=== PATIENT | male | born 1960 | race Caucasian/White ===

== ENCOUNTER → 2024-10-20 15:19 | Outpatient (BNVA) | payer BC, MEDICAID, SELFPAY | PROVIDERS: PCP Nurse Practitioner Family; Visit Provider Orthopaedic Surgery | DX: M54.50 Low back pain, unspecified (principal); M54.9 Dorsalgia, unspecified | CPT/HCPCS: 72110 ==

== ENCOUNTER 2024-10-28 15:30 | Outpatient (CLI) | payer MEDICAID, SELFPAY ==
--- NOTE | 2024-10-28 16:00 | MR_ITS ---
WS: [id number] MRI LUMBAR SPINE NONCONTRAST HISTORY: lumbar spine pain, left-sided radiculopathy. COMPARISON: None available. TECHNIQUE: Sagittal and axial multisequence imaging is submitted. Surgical hardware in the cervical spine. Mild straightening and LEFT curvature lumbar spine. Mild disc space narrowing and desiccation. Hypertrophic endplate osteophytes. Marrow edema in the LEFT L5 pedicle and lamina extending into the superior and inferior articular facets. There is increased fluid in the L4-5 LEFT facet joint and additional small amount of marrow edema in the RIGHT L4 LEFT inferior articular facet. Multiple small fluid collections in the LEFT L4-5 paraspinal region. Conus terminates normally at L1-2 disc level. T12-L1: Small central disc protrusion. No stenosis. L1-L2: Mild facet arthritis. No stenosis. L2-L3: Mild annular disc bulging with very minimal osteophytic ridging, ligamentum flavum and facet arthritis. Very mild foraminal narrowing. L3-L4: Diffuse annular disc bulging with moderate osteophytic ridging, ligamentum flavum and facet arthritis. Bilateral foraminal disc osteophyte complexes, RIGHT greater than LEFT. Mild encroachment upon the ventral thecal sac, subarticular recesses and traversing L4 nerve roots. Mild central, bilater al subarticular recess and foraminal stenosis. Slight contact on the RIGHT exiting L3 nerve root. L4-L5: Diffuse annular disc bulging with mild osteophytic ridging, facet and ligamentum flavum hypertrophy. Small central disc protrusion with annular fissure. Significant abnormal osseous and soft tissue process and surrounding the LEFT facet joint in the LEFT paraspinal soft tissues. Abnormal soft tissue extends into the LEFT subarticular recess and proximal foramen. There is marrow edema in the LEFT posterior elements and facet joints with fluid in the LEFT facet joint. There are multiple small fluid collections surrounding the facet joint extending into the paraspinal soft tissues. Abnormal soft tissue and osseous local to this area extends over a length of at least 4.4 cm from the L4 facets towards the L5 facet. Moderate central, bilateral subarticular recess and LEFT foraminal stenosis. L5-S1: Diffuse annular disc bulging intermediate signal into the LEFT subarticular recess contacting the LEFT S1 nerve root. This is in continuity with the paraspinal soft tissue process extending inferiorly from L4. Moderate central, severe LEFT subarticular recess and moderate to severe LEFT foraminal stenosis. Minimal RIGHT foraminal stenosis. Visualized retroperitoneum is negative. Mild fatty replacement of the LEFT psoas muscle. Mild fatty replacement of the LEFT gluteus maximums muscle. Paraspinal soft tissue edema extends over a length of 10.3 cm within the subcutaneous soft tissues on the LEFT beginning at L2-3 disc level and extending inferiorly to S2. Soft tissue is contiguous extending centrally to the L4-5 level. MR/MR lumbar spine wo con* [id number] IMPRESSION: 1. Abnormal soft tissue and osseous process centered at the L4-5 and L5-S1 fac et joints and the surrounding soft tissues. Multiple small fluid collections mi rrounding the LEFT L4 facet joint. Findings may all be due to acute synovitis. Possibility of paraspinal abscess and osteomyelitis should be considered. 2. L4-5: Small central disc protrusion with annular fissure. Moderate central, bilateral subarticular recess and LEFT foraminal stenosis. Increased soft tiss ue extends LEFT subarticular through the foramen. Epidural abscess not excluded . May be disc protrusions and inflammation from synovitis. 3. L5-S1: Abnormal signal LEFT subarticular recess and LEFT foramen contiguous with the acute inflammatory process surrounding the LEFT facet joints at ronald michele soft tissues. Epidural abscess not excluded. Moderate central, severe LEF T subarticular recess and moderate to severe LEFT foraminal stenosis. 4. L3-4: Mild central, bilateral subarticular recess and foraminal stenosis. 5. Mild fatty atrophy of the LEFT psoas and LEFT gluteus tyrese muscles. Recommendation: MRI lumbar spine with gadolinium to exclude osteomyelitis, para spinal abscesses and epidural abscesses at L4-5 and L5-S1.
== END 2024-10-28 15:31 | disposition home or self-care (01) ==
LOC: RAD 15:40
PROVIDERS: PCP Nurse Practitioner Family; Visit Provider Orthopaedic Surgery
DX: M51.369 Other intervertebral disc degeneration, lumbar region without mention of lumbar back pain or lower extremity pain (principal); R93.7 Abnormal findings on diagnostic imaging of other parts of musculoskeletal system; M51.26 Other intervertebral disc displacement, lumbar region; M48.061 Spinal stenosis, lumbar region without neurogenic claudication; M48.07 Spinal stenosis, lumbosacral region; M62.58 Muscle wasting and atrophy, not elsewhere classified, other site; M62.552 Muscle wasting and atrophy, not elsewhere classified, left thigh; Z98.890 Other specified postprocedural states; M51.25 Other intervertebral disc displacement, thoracolumbar region; M47.896 Other spondylosis, lumbar region; M24.28 Disorder of ligament, vertebrae; M51.379 Other intervertebral disc degeneration, lumbosacral region without mention of lumbar back pain or lower extremity pain
CPT/HCPCS: 72148

== ENCOUNTER 2024-12-04 05:00 | Outpatient (RCR) | payer MEDICAID, SELFPAY | END 2025-01-02 23:59 | disposition home or self-care (01) | LOC: MPT 05:00 | PROVIDERS: Visit Provider Orthopaedic Surgery | DX: M54.9 Dorsalgia, unspecified (principal); G89.29 Other chronic pain | CPT/HCPCS: 97110; 97161 ==

== ENCOUNTER 2025-01-03 05:00 | Outpatient (RCR) | payer MEDICAID, SELFPAY | END 2025-02-02 23:59 | disposition home or self-care (01) | LOC: MPT 05:00 | PROVIDERS: PCP Nurse Practitioner Family; Visit Provider Orthopaedic Surgery | DX: M54.9 Dorsalgia, unspecified (principal); G89.29 Other chronic pain | CPT/HCPCS: 97032; 97110; 97530 ==

== ENCOUNTER → 2025-01-03 13:43 | Outpatient (BNVA) | payer BC, MEDICAID, SELFPAY | PROVIDERS: PCP Nurse Practitioner Family; Visit Provider Internal Medicine | DX: E11.9 Type 2 diabetes mellitus without complications (principal) | CPT/HCPCS: 36415; 82947; 84681; 86337; 86341 ==

== ENCOUNTER → 2025-01-19 09:00 | Outpatient (BNVA) | payer BC, MEDICAID, SELFPAY | PROVIDERS: PCP Nurse Practitioner Family; Visit Provider Orthopaedic Surgery | DX: M48.02 Spinal stenosis, cervical region (principal) | CPT/HCPCS: 72050 ==

== ENCOUNTER 2025-01-20 13:23 | Outpatient (CLI) | payer MEDICAID, SELFPAY ==
--- NOTE | 2025-01-20 13:45 | MR_ITS ---
WS: [id number] MRI CERVICAL SPINE NONCONTRAST HISTORY: Neck pain COMPARISON: Radiograph 01/19/2025 Technique: Multiplanar, multisequence noncontrast imaging of the cervical spine. Prior anterior cervical fusion with interbody spacers from C3-C7. No marrow edema or acute fractures. Signal within the cervical cord is normal. Visualized posterior fossa is unremarkable. Craniocervical junction, C1 and C2 relationship, odontoid process and soft tissues are normal. C2-C3: Diffuse moderate osteophytic ridging and disc bulging and facet arthritis. Mild central and LEFT foraminal stenosis. Moderate RIGHT foraminal stenosis due to disc osteophyte disease. C3-C4: Mild osteophytic ridging. Mild bilateral foraminal stenosis due to osteophytes. C4-C5: Mild facet joint osteophytes. Mild foraminal stenosis. C5-C6: Bilateral foraminal osteophytes, moderate to severe bilateral foraminal stenosis. C6-C7: Diffuse osteophytic ridging with bilateral foraminal disc osteophyte complexes. Small central disc protrusion. Mild central and LEFT foraminal stenosis. Moderate to severe RIGHT foraminal stenosis. C7-T1: Small central disc protrusion. Bilateral foraminal osteophytes with mild stenosis. T1-2: Small LEFT paracentral disc protrusion. Paravertebral soft tissues are negative. MR/MR cervical spin wo con* [id number] IMPRESSION: 1. Prior anterior cervical fusion from C3-C7 with interbody spacers. 2. C2-3: Moderate RIGHT and mild LEFT foraminal stenosis. 3. C5-6: Moderate to severe bilateral foraminal stenosis predominantly due to osteophytes. 4. C6-7: Small central disc protrusion. Mild central and LEFT foraminal stenos is. Moderate to severe RIGHT foraminal stenosis. 5. Mild bilateral foraminal stenosis at C3-4, C4-5 and C7-T1.
== END 2025-01-20 13:24 | disposition home or self-care (01) ==
LOC: RAD 13:24
PROVIDERS: PCP Nurse Practitioner Family; Visit Provider Orthopaedic Surgery
DX: M48.02 Spinal stenosis, cervical region (principal); M48.03 Spinal stenosis, cervicothoracic region; M50.223 Other cervical disc displacement at C6-C7 level; M25.78 Osteophyte, vertebrae; Z98.1 Arthrodesis status
CPT/HCPCS: 72141

== ENCOUNTER → 2025-01-26 13:35 | Outpatient (BNVA) | payer MEDICAID, SELFPAY | PROVIDERS: PCP Nurse Practitioner Family; Visit Provider Orthopaedic Surgery | DX: M48.02 Spinal stenosis, cervical region (principal); Z09 Encounter for follow-up examination after completed treatment for conditions other than malignant neoplasm | CPT/HCPCS: 99214 ==

== ENCOUNTER 2025-02-03 06:30 | Outpatient (RCR) | payer MEDICAID, SELFPAY | END 2025-03-05 23:59 | disposition home or self-care (01) | LOC: MPT 06:30 | PROVIDERS: PCP Nurse Practitioner Family; Visit Provider Orthopaedic Surgery | DX: M54.9 Dorsalgia, unspecified (principal); G89.29 Other chronic pain | CPT/HCPCS: 97110; 97530 ==

== ENCOUNTER → 2025-02-14 09:26 | Outpatient (BNVA) | payer MEDICAID, SELFPAY | PROVIDERS: PCP Nurse Practitioner Family; Visit Provider Anesthesiology Pain Medicine | DX: M86.9 Osteomyelitis, unspecified (principal); M54.16 Radiculopathy, lumbar region; M54.2 Cervicalgia; M54.9 Dorsalgia, unspecified; M48.02 Spinal stenosis, cervical region; G99.2 Myelopathy in diseases classified elsewhere; Z87.891 Personal history of nicotine dependence | CPT/HCPCS: 99205 ==

== ENCOUNTER 2025-02-17 12:50 | Outpatient (CLI) | payer MEDICAID, SELFPAY ==
--- NOTE | 2025-02-17 16:00 | MR_ITS ---
WS: [id number] MRI LUMBAR SPINE PRE AND POST CONTRAST. HISTORY: M86.9 - Osteomyelitis, unspecified COMPARISON: 10/28/2024 TECHNIQUE: Sagittal and axial multisequence imaging is submitted. MultiHance 18 mL. Prior fusion hardware cervical spine. Mild straightening lumbar spine. Marrow edema is reidentified in the LEFT L5 pedicle and lamina and articular facet. Distal marrow edema in the LEFT lateral sacrum. Disc spaces are well-maintained. Conus terminates normally at L1-2 disc level. T12-L1: Small central disc protrusion. L1-L2: No stenosis. L2-L3: Mild disc bulging and facet arthritis. Minimal foraminal narrowing. L3-L4: Diffuse osteophytic ridging, annular disc bulging with ligamentum flavum and facet arthritis. Bilateral foraminal disc osteophyte complexes, RIGHT greater than LEFT. RIGHT foraminal disc osteophyte similar to the prior study. Mild contact on the exiting RIGHT L3 nerve root. Mild central stenosis and subarticular recess stenosis. Disc contacts the traversing nerve roots. L4-L5: Diffuse disc bulging with ligamentum flavum and facet arthritis. Moderate central, bilateral subarticular recess and foraminal stenosis. L5-S1: Diffuse disc bulging with a LEFT paracentral disc protrusion. Mild LEFT foraminal stenosis. Previously described edema and soft tissue inflammatory component surrounding the LEFT L4-5 and L5-S1 facet joints and paraspinal soft tissues is reidentified. Overall there is been a significant improvement in the amount of soft tissue edema and the small fluid collections in the paraspinal soft tissues on the LEFT soft tissue enhancement extends into the LEFT L4-5 and L5-S1 foramina extending along the nerve roots. No definite epidural abscess.. There is persistent marrow edema in the LEFT L5 and S1 posterior elements but improved. On the postcontrast imaging there is enhancement surrounding the LEFT L4-5 facet joint there is small enhancing complex fluid collections in the paraspinal soft tissues at L4-5 suspicious for abscesses. There is enhancement in the L5 lamina and pedicle and facet. Additional enhancement within the LEFT lateral sacrum. MR/MR lumbar spine wo/w con [id number] IMPRESSION: 1. Persistent but improved edema and inflammation centered in the LEFT L4-5 an d L5-S1 facet joints and the paraspinal soft tissues. Enhancement in the L5 durán tim, pedicle and the facet joint and in the LEFT lateral sacrum consistent with osteomyelitis. Inflammatory/infectious process seems to be centered around the L4-5 and L5-S1 facet joints. 2. Multiple small complex fluid collections with peripheral enhancement in the paraspinal soft tissues at L4 and L5 consistent with abscesses. 3. Enhancement within the LEFT L4-5 and L5-S1 foramina extending along the ner ve roots. 4. No definite epidural abscess identified. 5. L4-5: Moderate central, bilateral subarticular recess and foraminal stenosi s. 6. L5-S1: LEFT paracentral disc protrusion and mild LEFT foraminal stenosis du e to disc osteophyte disease. 7. L3-4: Bilateral foraminal disc osteophyte complexes. Mild central, subartic ular recess and foraminal stenosis.
== END 2025-02-17 12:51 | disposition home or self-care (01) ==
LOC: RAD 12:51
PROVIDERS: PCP Nurse Practitioner Family; Visit Provider Anesthesiology Pain Medicine
DX: M86.9 Osteomyelitis, unspecified (principal); M51.25 Other intervertebral disc displacement, thoracolumbar region; M51.369 Other intervertebral disc degeneration, lumbar region without mention of lumbar back pain or lower extremity pain; M48.061 Spinal stenosis, lumbar region without neurogenic claudication; M51.26 Other intervertebral disc displacement, lumbar region; M51.16 Intervertebral disc disorders with radiculopathy, lumbar region; M48.07 Spinal stenosis, lumbosacral region; M46.96 Unspecified inflammatory spondylopathy, lumbar region; M47.896 Other spondylosis, lumbar region; M24.28 Disorder of ligament, vertebrae; M51.379 Other intervertebral disc degeneration, lumbosacral region without mention of lumbar back pain or lower extremity pain; M51.27 Other intervertebral disc displacement, lumbosacral region
CPT/HCPCS: 72158

== ENCOUNTER → 2025-02-28 14:54 | Outpatient (BNVA) | payer MEDICAID, SELFPAY | PROVIDERS: PCP Nurse Practitioner Family; Visit Provider Podiatrist Foot & Ankle Surgery | DX: E11.8 Type 2 diabetes mellitus with unspecified complications (principal); G62.9 Polyneuropathy, unspecified; L60.3 Nail dystrophy; B35.3 Tinea pedis; E11.42 Type 2 diabetes mellitus with diabetic polyneuropathy; Z79.4 Long term (current) use of insulin | CPT/HCPCS: 99204 ==

== ENCOUNTER 2025-03-02 09:13 | Outpatient (CLI) | payer MEDICAID, SELFPAY ==
--- NOTE | 2025-03-02 09:19 | US_ITS ---
WS: [id number] RIGHT UPPER QUADRANT ULTRASOUND HISTORY: ABDOMINAL PAIN COMPARISON: None available. Liver: 14.6 cm in length. Normal size liver and echogenicity. No bile duct dilatation or mass. Portal Vein: Normal hepatopetal flow with monophasic waveform. Gallbladder: Mild gallbladder wall thickening due to nonfasting state. No stones identified. No pericholecystic fluid. CBD: 0.2 cm Pancreas: Obscured by bowel gas. Right kidney: 12.0 cm in length. Normal size and echogenicity. No hydronephrosis or mass. Aorta and IVC: Unremarkable abdominal aorta and IVC. No ascites. US/US gall bladder [id number] IMPRESSION: 1. Mild gallbladder wall thickening may be due to nonfasting state. No choleli thiasis. 2. Negative liver. 3. Negative RIGHT kidney.
== END 2025-03-02 09:14 | disposition home or self-care (01) ==
LOC: RAD 09:14
PROVIDERS: PCP Nurse Practitioner Family; Visit Provider Nurse Practitioner Family
DX: R10.11 Right upper quadrant pain (principal)
CPT/HCPCS: 76705

== ENCOUNTER 2025-03-06 05:00 | Outpatient (RCR) | payer MEDICAID, SELFPAY | END 2025-04-04 23:59 | disposition home or self-care (01) | LOC: MPT 05:00 | PROVIDERS: PCP Nurse Practitioner Family; Visit Provider Orthopaedic Surgery | DX: M54.9 Dorsalgia, unspecified (principal); G89.29 Other chronic pain | CPT/HCPCS: 97110; 97530 ==

== ENCOUNTER → 2025-03-14 09:27 | Outpatient (BNVA) | payer MEDICAID, SELFPAY | PROVIDERS: PCP Nurse Practitioner Family; Visit Provider Anesthesiology Pain Medicine | DX: M54.9 Dorsalgia, unspecified (principal); M54.2 Cervicalgia; M48.02 Spinal stenosis, cervical region; G99.2 Myelopathy in diseases classified elsewhere | CPT/HCPCS: 99215 ==

== ENCOUNTER → 2025-03-16 13:31 | Outpatient (BNVA) | payer MEDICAID, SELFPAY | PROVIDERS: PCP Nurse Practitioner Family; Visit Provider Nurse Practitioner Family | DX: L08.9 Local infection of the skin and subcutaneous tissue, unspecified (principal); B35.6 Tinea cruris; L29.89 Other pruritus; B35.3 Tinea pedis; L28.0 Lichen simplex chronicus; R21 Rash and other nonspecific skin eruption | CPT/HCPCS: 11104; 99204 ==

== ENCOUNTER → 2025-03-27 11:46 | Outpatient (BNVA) | payer MEDICAID, SELFPAY | PROVIDERS: PCP Nurse Practitioner Family; Visit Provider Nurse Practitioner Family | DX: B35.4 Tinea corporis (principal); B35.8 Other dermatophytoses | CPT/HCPCS: 99214 ==

== ENCOUNTER → 2025-04-13 12:54 | Outpatient (BNVA) | payer MEDICAID, SELFPAY | PROVIDERS: PCP Nurse Practitioner Family; Visit Provider Student in an Organized Health Care Education/Training Program | DX: M13.80 Other specified arthritis, unspecified site (principal); M86.9 Osteomyelitis, unspecified | CPT/HCPCS: 36415; 80053; 82085; 82164; 85025; 85651; 86140; 86160; 86162; 86200; 86235; 86255; 86376; 86431; 86622; 86812; 87040; 99205 ==

== ENCOUNTER → 2025-04-25 14:02 | Outpatient (BNVA) | payer MEDICAID, SELFPAY | PROVIDERS: PCP Nurse Practitioner Family; Visit Provider Nurse Practitioner Family | DX: B35.4 Tinea corporis (principal); B35.8 Other dermatophytoses; L98.1 Factitial dermatitis; L81.0 Postinflammatory hyperpigmentation; L28.0 Lichen simplex chronicus; L28.1 Prurigo nodularis; D22.72 Melanocytic nevi of left lower limb, including hip; L30.9 Dermatitis, unspecified | CPT/HCPCS: 11102; 99214 ==

== ENCOUNTER 2025-05-03 14:06 | Outpatient (RCR) | payer MEDICAID, SELFPAY | END 2025-05-05 23:59 | disposition home or self-care (01) | LOC: MPT 14:06 | PROVIDERS: PCP Nurse Practitioner Family; Visit Provider Orthopaedic Surgery | DX: M54.9 Dorsalgia, unspecified (principal); G89.29 Other chronic pain | CPT/HCPCS: 97110; 97530 ==

== ENCOUNTER → 2025-05-09 14:05 | Outpatient (BNVA) | payer MEDICAID, SELFPAY | PROVIDERS: PCP Nurse Practitioner Family; Visit Provider Orthopaedic Surgery | DX: M48.02 Spinal stenosis, cervical region (principal); G99.2 Myelopathy in diseases classified elsewhere; M54.9 Dorsalgia, unspecified; G89.29 Other chronic pain | CPT/HCPCS: 72040; 99213 ==

== ENCOUNTER → 2025-05-17 14:55 | Outpatient (BNVA) | payer MEDICAID, SELFPAY | PROVIDERS: PCP Nurse Practitioner Family; Visit Provider Student in an Organized Health Care Education/Training Program | DX: M13.80 Other specified arthritis, unspecified site (principal); M86.9 Osteomyelitis, unspecified | CPT/HCPCS: 99213 ==

== ENCOUNTER → 2025-05-18 12:15 | Day surgery (SDC) | payer MEDICAID, SELFPAY ==
[2025-05-18 12:28] VITALS: BP 159/94; PULSE 75; RESP 18; TEMP 36.7; O2SAT 97
--- NOTE | 2025-05-18 12:31 | XR_ITS ---
WS: [id number] Exam: XR chest 1V portable [id number] Date/Time of Exam: 05/18/2025 12:44 PM Reason For Exam: Post PICC insertion No priors. Mild cardiac enlargement with increased pulmonary vascularity. No consolidated infiltrates or pleural effusion. A left-sided PICC line ends at the cavoatrial junction. Bony structures are intact. Fusion hardware in the lower C-spine. XR/XR chest 1V portable [id number] IMPRESSION: 1. Mild cardiac enlargement with increased pulmonary vascularity. 2. Left-sided PICC line ending at the cavoatrial junction.
[2025-05-18] MEDS: DAPTOmycin 500 MG SDV 700 MG IVP (13:30)
[2025-05-18 13:31] LABS: Hematocrit 43.1 % (37-53); Hemoglobin 14.60 g/dL (11.27-16.99); Mean Corpuscular HGB Conc 33.9 g/dL (30-55); Mean Corpuscular Hemoglobin 28.0 pg (27-33); Mean Corpuscular Volume 82.6 fl (82-101); Nucleated Red Blood Cells % 0 %; Platelet Count 254 10^3/cmm (157-399); Red Blood Count 5.22 10^6/uL (3.85-5.65); White Blood Count 7.72 10^3/uL (3.29-11.43)
[2025-05-18] MEDS: cefTRIAXone 2,000 mg SDV 2000 MG IVP (13:49)
--- NOTE | 2025-05-18 14:25 | PICC.NOTE ---
Single lumen PICC placed to left basilic vein. Referred to vascular access nurse for PICC placement due to need for IV antibiotics x 6 weeks for osteomyelitis. Risks and benefits discussed and informed consent obtained from pt. Pt right hand dominant and will be giving infusion at home. Left arm assessed with left basilic vein measuring 5.6 mm, straight, and apparent best choice for placement. Using sterile technique and MST, left basilic vein accessed x 1 stick. Mid-arm circumference measured 10 cm from left AC 30 cm. Trimmed cath 47 cm with 0 cm external length noted. CXR shows tip in cavoatrial junction, in good position for use per radiologist. Line secured with stat-lock. Insertion site covered with Biopatch and TSM. Report faxed to [facility] infusion. Extensive teaching given for home administration of antibiotic. Written instructions and SASH mat provided for proper flushing and administration of ceftriaxone and daptomycin IVP at home. Pt demonstrated proper technique on how to flush PICC with saline. Pt administered his antibiotics correctly with nurse supervision. Pt verbalized he feels comfortable giving antibiotics at home. Pt given follow up appointment of at 1200 at [facility] infusion for PICC dressing change and lab draw. No further questions at this time. Dr. Segovia's nurse, Roxana, cassandra.
[2025-05-18 14:32] LABS: Alanine Aminotransferase 17 U/L (0-41); Albumin Level 4.3 g/dL (3.5-5.2); Alkaline Phosphatase 136 U/L (40-130); Anion Gap 16.8 (5-19); Aspartate Amino Transferase 18 U/L (0-40); Blood Urea Nitrogen 14 mg/dL (8-23); Calcium 8.9 mg/dL (8.5-10.5); Carbon Dioxide 24 mmol/L (22-29); Chloride 97 mmol/L (98-107); Creatinine Clr Calc Pharmacy 101.4563; Globulin 3.7 g/dL (1.3-4.6); Glucose 291 mg/dL (65-115); Osmolality Calculated 287 mOsm/kg (285-295); Potassium 4.8 mmol/L (3.5-5.1); Sodium 133 mmol/L (136-145); Total Protein 8.0 g/dL (6.6-8.7)
== END ==
LOC: GILAB 12:17
PROVIDERS: PCP Nurse Practitioner Family; Visit Provider Student in an Organized Health Care Education/Training Program
DX: M86.9 Osteomyelitis, unspecified (principal)
CPT/HCPCS: 36573; 36592; 71045; 80053; 82550; 85025; 96374; 96375; J0696; J0878

== ENCOUNTER 2025-05-29 12:27 | Oncology outpatient (recurring) (ONCR) | payer MEDICAID, SELFPAY ==
[2025-05-22 12:06] LABS: Hematocrit 46.4 % (37-53); Hemoglobin 15.30 g/dL (11.27-16.99); Mean Corpuscular HGB Conc 33.0 g/dL (30-55); Mean Corpuscular Hemoglobin 28.0 pg (27-33); Mean Corpuscular Volume 84.8 fl (82-101); Nucleated Red Blood Cells % 0 %; Platelet Count 250 10^3/cmm (157-399); Red Blood Count 5.47 10^6/uL (3.85-5.65); White Blood Count 8.19 10^3/uL (3.29-11.43)
[2025-05-29 12:52] LABS: Hematocrit 44.0 % (37-53); Hemoglobin 14.80 g/dL (11.27-16.99); Mean Corpuscular HGB Conc 33.6 g/dL (30-55); Mean Corpuscular Hemoglobin 28.0 pg (27-33); Mean Corpuscular Volume 83.3 fl (82-101); Nucleated Red Blood Cells % 0 %; Platelet Count 232 10^3/cmm (157-399); Red Blood Count 5.28 10^6/uL (3.85-5.65); White Blood Count 7.31 10^3/uL (3.29-11.43)
[2025-05-29 13:13] LABS: Alanine Aminotransferase 23 U/L (0-41); Albumin Level 4.0 g/dL (3.5-5.2); Alkaline Phosphatase 139 U/L (40-130); Aspartate Amino Transferase 20 U/L (0-40); Blood Urea Nitrogen 14 mg/dL (8-23); Calcium 8.8 mg/dL (8.5-10.5); Carbon Dioxide 24 mmol/L (22-29); Chloride 98 mmol/L (98-107); Globulin 3.1 g/dL (1.3-4.6); Glucose 367 mg/dL (65-115); Osmolality Calculated 289 mOsm/kg (285-295); Sodium 132 mmol/L (136-145); Total Protein 7.1 g/dL (6.6-8.7)
[2025-05-29 13:16] LABS: Anion Gap 14.6 (5-19); Potassium 4.6 mmol/L (3.5-5.1)
== END 2025-06-04 23:59 | disposition home or self-care (01) ==
PROVIDERS: Student in an Organized Health Care Education/Training Program; PCP Nurse Practitioner Family; Visit Provider Internal Medicine Medical Oncology
DX: M86.9 Osteomyelitis, unspecified; Z53.9 Procedure and treatment not carried out, unspecified reason
CPT/HCPCS: 36592; 80053; 82550; 85025

== ENCOUNTER → 2025-06-22 14:20 | Outpatient (BNVA) | payer MEDICARE, MEDICAID, SELFPAY | PROVIDERS: PCP Nurse Practitioner Family; Visit Provider Student in an Organized Health Care Education/Training Program | DX: M86.9 Osteomyelitis, unspecified (principal); M48.061 Spinal stenosis, lumbar region without neurogenic claudication; M47.9 Spondylosis, unspecified | CPT/HCPCS: 36415; 72020; 72220; 80053; 80061; 82044; 82550; 83036; 85025 ==

== ENCOUNTER 2025-06-30 14:38 | Oncology outpatient (recurring) (ONCR) | payer MEDICAID, SELFPAY ==
[2025-06-05 13:25] LABS: Hematocrit 40.6 % (37-53); Hemoglobin 13.50 g/dL (11.27-16.99); Mean Corpuscular HGB Conc 33.3 g/dL (30-55); Mean Corpuscular Hemoglobin 27.9 pg (27-33); Mean Corpuscular Volume 83.9 fl (82-101); Nucleated Red Blood Cells % 0 %; Platelet Count 213 10^3/cmm (157-399); Red Blood Count 4.84 10^6/uL (3.85-5.65); White Blood Count 6.68 10^3/uL (3.29-11.43)
[2025-06-05 13:45] LABS: Alanine Aminotransferase 21 U/L (0-41); Albumin Level 4.2 g/dL (3.5-5.2); Alkaline Phosphatase 130 U/L (40-130); Anion Gap 14.4 (5-19); Aspartate Amino Transferase 18 U/L (0-40); Blood Urea Nitrogen 15 mg/dL (8-23); Calcium 8.8 mg/dL (8.5-10.5); Carbon Dioxide 23 mmol/L (22-29); Chloride 99 mmol/L (98-107); Globulin 3.0 g/dL (1.3-4.6); Glucose 339 mg/dL (65-115); Osmolality Calculated 288 mOsm/kg (285-295); Potassium 4.4 mmol/L (3.5-5.1); Sodium 132 mmol/L (136-145); Total Protein 7.2 g/dL (6.6-8.7)
--- NOTE | 2025-06-30 14:30 | MRR_ITS ---
PROCEDURE INFORMATION: Exam: MR Lumbar Spine Without and With Contrast Exam date and time: 06/30/2025 2:55 PM Age: 65 years old Clinical indication: Condition or disease; Other: Osteomylitis in spine; Additional info: F/up chronic lumbar osteomyelitis. Prior mris. Been on iv antibiotics TECHNIQUE: Imaging protocol: Magnetic resonance imaging of the lumbar spine without and with contrast. Contrast material: MULTIHANCE; Contrast volume: 18 ml; Contrast route: INTRAVENOUS (IV); COMPARISON: MR lumbar spine wo/w con [id number] 02/17/2025 1:09 PM FINDINGS: Bones/joints: The spine is imaged from T11 through S3. AP alignment and curvature remain normal. There is no indication of fracture or bone marrow replacement. Subtle type 1 Modic endplate changes border the L3-L4 disc space, similar to the prior study. There has been a resolution of the high STIR signal intensity affecting the right L5 and S1 pedicles and adjacent posterior elements, the structures showing no marrow edema on today's study. With contrast administration no enhancement of the osseous structures is observed. There remains some enhancement of the left L4-L5 facet capsule (1301/23). Mild enhancement of the epiradicular fat along the exiting left L4 and L5 nerve roots (1301/22, 28). Very subtle enhancement in the erector spinae musculature at this level is also noted. There is no evidence of discrete abscess. Spinal cord: The thoracic cord is normal in appearance with a normal conus tip seen ending at the level of the L1 superior endplate. T11-T12: T11-12: Disc height is normal. There is no disc protrusion, foraminal stenosis, or neural impingement. T12-L1: Stable shallow disc bulge and enhancing annular fissure. No neural impingement. L1-L2: Disc height is normal. There is no disc protrusion, foraminal stenosis, or neural impingement. L2-L3: Mild disc space narrowing and a shallow disc bulge along with mild facet and ligament hypertrophy. No neural impingement or significant interval change. L3-L4: At L3-L4 circumferential disc protrusion is seen, unchanged in size from the prior study. This combines with mild stable facet and ligament hypertrophy to cause right L4 subarticular root impingement, similar to the prior exam. L4-L5: Moderate stable bilateral L4-L5 hypertrophic facet changes are present causing slight subarticular recess narrowing and potential mild right L5 root compromise. L5-S1: Stable, [id number]-[id number]-right L5-S1 hypertrophic facet changes are seen contacting but not displacing the left S1 nerve root. Soft tissues: See Bones/joints finding. MR/MR lumbar spine wo/w con [id number] IMPRESSION: 1. Interval resolution of marrow edema affecting the left L5 and S1 pedicles and articulating facets with residual left L5-S1 facet joint capsular enhancement and some minimal enhancement along the course of the exiting left L4 and L5 nerve roots and some minimal residual adjacent left erector spinae muscle enhancement. Findings are consistent with successful treatment of osteomyelitis with some residual left L4-L5 capsulitis and probable mild epiradicular postinflammatory fibrosis. 2. T12-L1 stable shallow disc bulge and enhancing posterior annular fissure without neural impingement. 3. L3-L4 circumferential small disc protrusion with right L4 subarticular root impingement, unchanged from prior study. 4. Stable L4-L5 facet hypertrophy causing mild potential right L5 subarticular root impingement. 5. Stable, left L5-S1 hypertrophic facet changes contacting but not displacing the left S1 root.
[2025-06-30] MEDS: gadobenate dimeglumine 20 mL vial 18 ML IV (15:16)
== END 2025-07-05 23:59 | disposition home or self-care (01) ==
LOC: ONCMED 14:38 → RAD 07-01 00:01
PROVIDERS: Student in an Organized Health Care Education/Training Program; PCP Nurse Practitioner Family; Visit Provider Internal Medicine Medical Oncology
DX: M86.9 Osteomyelitis, unspecified; R93.7 Abnormal findings on diagnostic imaging of other parts of musculoskeletal system; M51.85 Other intervertebral disc disorders, thoracolumbar region; M51.26 Other intervertebral disc displacement, lumbar region; M51.369 Other intervertebral disc degeneration, lumbar region without mention of lumbar back pain or lower extremity pain; M89.38 Hypertrophy of bone, other site; Z53.9 Procedure and treatment not carried out, unspecified reason
CPT/HCPCS: 36592; 72158; 80053; 82550; 85025